=== PATIENT | male | born 1975 | race Caucasian/White ===

== ENCOUNTER → 2016-12-08 | Outpatient (CLI) | payer BC | LOC: SLEEP 09:28 | DX: G47.33 Obstructive sleep apnea (adult) (pediatric) (principal) | CPT/HCPCS: 95811 ==

== ENCOUNTER 2020-12-25 09:24 | Emergency (ER) | payer BC ==
[~2020-12-25 09:24] MED LIST: ALLERGY RELIEF180 MG PO; AMITIZA8 MCG PO; COUMADIN5 MG PO; CYMBALTA60 MG PO; LEVOTHYROXINE100 MCG PO; LINZESS145 MCG PO; LOVENOX SY120 MG/0.8 SQ; LYRICA100 MG PO; PRAVASTATIN SOD40 MG PO; PROTONIX40 MG PO; SINGULAIR10 MG PO; VITAMIN D250000 UNIT PO
[2020-12-25 10:50] LABS: HEMOGLOBIN 14.1 gm/dl (14.0-17.5); RED BLOOD COUNT 4.99 M/UL (4.20-5.50)
[2020-12-25 11:11] LABS: BUN/CREATININE RATIO 16 (0-10)
== END 2020-12-25 13:20 | disposition home or self-care (01) ==
LOC: ER1 09:24
PROVIDERS: Physician Assistant
DX: I10 Essential (primary) hypertension (principal); R07.9 Chest pain, unspecified; E78.5 Hyperlipidemia, unspecified; Z86.711 Personal history of pulmonary embolism; Z90.49 Acquired absence of other specified parts of digestive tract; Z79.01 Long term (current) use of anticoagulants; Z20.822 Contact with and (suspected) exposure to COVID-19
CPT/HCPCS: 0240U; 36415; 71045; 80053; 82550; 82553; 83874; 84484; 85025; 93005; 99285; J7030

== ENCOUNTER 2021-04-09 09:07 | Emergency (ER) | payer BC ==
[2021-04-09 09:59] LABS: HEMOGLOBIN 14.4 gm/dl (14.0-17.5); RED BLOOD COUNT 5.19 M/UL (4.20-5.50); WHITE BLOOD COUNT 5.7 K/UL (4.5-11.0)
[2021-04-09 10:25] LABS: BUN/CREATININE RATIO 14 (0-10)
== END 2021-04-09 13:04 | disposition home or self-care (01) ==
LOC: ER1 09:07
PROVIDERS: Student in an Organized Health Care Education/Training Program
DX: M54.16 Radiculopathy, lumbar region (principal); M54.30 Sciatica, unspecified side; M79.651 Pain in right thigh
CPT/HCPCS: 80053; 82550; 85025; 85610; 93926; 93971; 99284